=== PATIENT | female | born 1990 | race Caucasian/White ===

== ENCOUNTER → 2020-06-07 | Outpatient (CLI) | payer SELFPAY ==
[2020-06-07 09:22] VITALS: BMI 29.7
[2020-06-12 04:26] LABS: HPV Reflexed? NOT INDICATED
== END | disposition home or self-care (01) ==
LOC: LABSPEC 13:16
PROVIDERS: Referring Provider Obstetrics & Gynecology; Visit Provider Obstetrics & Gynecology
DX: O09.90 Supervision of high risk pregnancy, unspecified, unspecified trimester (principal); Z3A.00 Weeks of gestation of pregnancy not specified
CPT/HCPCS: 87086; 87088; 88175; G0145

== ENCOUNTER → 2020-07-01 11:25 | Outpatient (CLI) | payer SELFPAY ==
[2020-07-01 10:46] VITALS: BMI 30.6
[2020-07-01 11:46] LABS: Absolute Lymphocyte Count 2.18 X10^3/uL (0.83-4.51); Absolute Neutrophil Count 5.7 X10^3/uL (2.0-7.7); Basophil# 0.03 X10^3/uL; Basophil% 0.3 % (0-1); Eosinophil# 0.24 X10^3/uL; Eosinophils% 2.7 % (0-5); Hematocrit 36.7 % (37-47); Hemoglobin 12.3 g/dL (12.0-15.0); Lymphocyte # 2.18 X10^3/ul (4.0); Lymphocyte % 24.9 % (19-41); Mean Corp Hgb Conc 33.5 g/dL (32-36); Mean Corpuscular Hgb 30.6 pg (27.0-32.0); Mean Corpuscular Volume 91.3 fL (81-99); Mean Platelet Vol. 9.2 fl (6.2-12.0); Monocyte# 0.52 X10^3/uL; Monocyte% 5.9 % (0-10); NRBC Flagged by Analyzer 0 % (0-5); Neutrophil # 5.74 X10^3/uL (2.7-7.7); Neutrophil % 65.7 % (47-70); Platelet Count 188 K/mm3 (150-450); RBC Distribution Width CV 13.2 % (11.6-14.6); RBC Distribution Width SD 43.9 fl (35.1-43.9); Red Blood Count 4.02 M/mm3 (4.2-5.4); White Blood Count 8.8 K/mm3 (4.4-11.0)
== END ==
PROVIDERS: Obstetrics & Gynecology; Referring Provider Obstetrics & Gynecology; Visit Provider Obstetrics & Gynecology
DX: O09.90 Supervision of high risk pregnancy, unspecified, unspecified trimester (principal); Z3A.00 Weeks of gestation of pregnancy not specified
CPT/HCPCS: 36415; 85025; 86850; 86900; 86901

== ENCOUNTER → 2020-08-13 13:46 | Outpatient (CLI) | payer OTHER, SELFPAY ==
[2020-08-05 11:06] VITALS: BMI 31.4
--- NOTE | 2020-08-13 13:48 | US_ITS ---
STUDY: SECOND AND THIRD TRIMESTER OBSTETRICAL ULTRASOUND REASON FOR EXAM: Female, 29 years old ANATOMY LMP: 04/13/2020. TECHNIQUE: Transabdominal TECHNICAL QUALITY: Adequate. PRIOR ULTRASOUND: None. FINDINGS: There is a single intrauterine fetus. The fetus is in a cephalic presentation. There is demonstrated cardiac activity with a heart rate of 150 bpm. There is a normal amniotic fluid volume. The largest amniotic fluid pocket measures 3.2 cm x 4.4 cm. The amniotic fluid index (JESENIA) is within normal limits. The placenta is anterior and fundal. There are Grade 0 placental changes. The cervix measures 4.8 cm in length. The adnexal regions are not visualized. BIOMETRY: BPD: 4.72 cm: 20 weeks, 1 days HC: 17.67 cm: 20 weeks, 1 days AC: 15.26 cm: 20 weeks, 3 days FL: 3.27 cm: 20 weeks, 1 days CI: 78.2% FL/BPD: 69.2% FL/HC: FL/AC: 21.4% HC/AC: 1.16 age by current US: 20 weeks, 0 days. ALETA by current US: 12/31/2020. Estimated weight: 346 grams, +/- 51 grams, 89.2 %. Age by LMP: 19 weeks, 3 days. ALETA by LMP: 01/04/2021. ANATOMY: Gender: Female Cranium: Normal lateral ventricles. Normal choroid plexus. Normal cerebellum. Normal cisterna magna. Normal face, nose and lips. Chest: Normal 4-chamber heart. Abdomen/Pelvis: Normal diaphragm. Normal stomach. Normal abdominal wall. Normal cord insertion. Normal 3 vessel cord. Normal kidneys. Normal bladder. Spine: Normal cervical spine. Normal thoracic spine. Normal lumbar spine. Normal sacrum. Extremities: Normal bilateral upper extremities. Normal bilateral lower extremities. US/OB Anatomy Scan IMPRESSION: Single live intrauterine gestation with a mean gestational age of 20 weeks. Electronically Signed: Jamey Chance, at 9:25 EST , Service support ,
== END ==
PROVIDERS: PCP Family Medicine; Referring Provider Obstetrics & Gynecology; Visit Provider Obstetrics & Gynecology
DX: Z36.9 Encounter for antenatal screening, unspecified (principal)
CPT/HCPCS: 76805

== ENCOUNTER → 2020-10-23 09:59 | Outpatient (CLI) | payer OTHER, SELFPAY ==
[2020-09-19 10:36] VITALS: BMI 32.7
[2020-10-23 10:47] LABS: Absolute Neutrophil Count 6.1 X10^3/uL (2.0-7.7); Basophil# 0.03 X10^3/uL; Basophil% 0.4 % (0-1); Eosinophil# 0.09 X10^3/uL; Eosinophils% 1.1 % (0-5); Hematocrit 31.9 % (37-47); Hemoglobin 10.3 g/dL (12.0-15.0); Lymphocyte % 17.8 % (19-41); Mean Corp Hgb Conc 32.3 g/dL (32-36); Mean Corpuscular Hgb 30.2 pg (27.0-32.0); Mean Corpuscular Volume 93.5 fL (81-99); Mean Platelet Vol. 10.3 fl (6.2-12.0); Monocyte# 0.62 X10^3/uL; Monocyte% 7.4 % (0-10); NRBC Flagged by Analyzer 0 % (0-5); Neutrophil # 6.11 X10^3/uL (2.7-7.7); Neutrophil % 72.5 % (47-70); Platelet Count 166 K/mm3 (150-450); RBC Distribution Width CV 13.2 % (11.6-14.6); RBC Distribution Width SD 45.1 fl (35.1-43.9); Red Blood Count 3.41 M/mm3 (4.2-5.4); White Blood Count 8.4 K/mm3 (4.4-11.0)
[2020-10-23 11:10] LABS: Glucose Challenge Gest 1H 50g 83 mg/dL (70-140)
== END ==
PROVIDERS: PCP Family Medicine; Referring Provider Obstetrics & Gynecology; Visit Provider Obstetrics & Gynecology
DX: O09.90 Supervision of high risk pregnancy, unspecified, unspecified trimester (principal); Z3A.00 Weeks of gestation of pregnancy not specified; Z13.1 Encounter for screening for diabetes mellitus
CPT/HCPCS: 36415; 82950; 85025

== ENCOUNTER → 2020-10-28 | Outpatient (CLI) | payer OTHER, SELFPAY ==
[2020-10-28 11:51] VITALS: BMI 34.2
[2020-10-28 12:30] LABS: ROM Internal Control Test YES-OK TO RESULT pt. (Internal QC); ROM Patient Test Negative (Negative)
== END | disposition home or self-care (01) ==
LOC: LABSPEC 12:05
PROVIDERS: PCP Family Medicine; Visit Provider Nurse Practitioner Women's Health
DX: O09.90 Supervision of high risk pregnancy, unspecified, unspecified trimester (principal); O42.90 Premature rupture of membranes, unspecified as to length of time between rupture and onset of labor, unspecified weeks of gestation; Z3A.00 Weeks of gestation of pregnancy not specified
CPT/HCPCS: 84112

== ENCOUNTER → 2020-12-04 | Outpatient (CLI) | payer OTHER, SELFPAY ==
[2020-12-04 10:20] VITALS: BMI 35.6
== END | disposition home or self-care (01) ==
LOC: LABSPEC 12:23
PROVIDERS: PCP Family Medicine; Referring Provider Nurse Practitioner Women's Health; Visit Provider Nurse Practitioner Women's Health
DX: Z34.93 Encounter for supervision of normal pregnancy, unspecified, third trimester (principal); Z3A.36 36 weeks gestation of pregnancy
CPT/HCPCS: 87081

== ENCOUNTER 2020-12-27 16:15 | Inpatient (IN) | payer SELFPAY, OTHER ==
[2020-07-01 10:46] VITALS: BMI 30.6
[2020-12-27] VITALS (23 sets, daily range): BP systolic 111–133; BP diastolic 72–85; PULSE 63–84; TEMP 36.3–37; O2SAT 97–100; BMI 35.6; BMI 35.5
[2020-12-27] MEDS: Lactated Ringers 1,000 ML 50 ML IV ×2 (17:00→21:14)
--- NOTE | 2020-12-27 17:30 | PCM.HP.OB ---
HPI - General General Date of Admission: 12/27/20 HPI Narrative PEDRITO SOLORZANO, is a 30 F who presents IAL 3 cm dilated and ruptured clear fluid. [facility] Medical History (Updated 12/27/20 @ 17:[address] Rona Stone MD) No significant medical problems Pre-eclampsia Home Medications multivitamin no.47-iron fum 27 mg-folate no.1 1 mg-dha 300 mg capsule 1 cap PO DAILY 06/03/20 [History Last Taken 12/27/20 10:00 1 capsule] calcium mg PO DAILY 12/27/20 [History Last Taken 12/27/20 10:00] iron,iron asp gly-FA-mv,min38 125 tab PO DAILY 12/27/20 [History Last Taken 12/27/20 10:00 125 mg] magnesium 12/27/20 [History Last Taken 12/27/20 10:00] Allergy/AdvReac Type Severity Reaction Status Date / Time Penicillins Allergy Intermediate Unknown Verified 12/27/20 16:30 loratadine [From Claritin] AdvReac Severe Other Verified 12/27/20 16:30 Family History Mother Hypertension Surgical History H/O section Social History household members: family number of children: 2 current occupation: homemaker Smoking Status: Never smoker second hand exposure: No alcohol intake: never substance use type: does not use seatbelt use: always do you feel safe at home: Yes additional social history: - [place] History 4 Elective abortions Hx Para 2 Spontaneous abortions 1 Hx # Term Pregnancies Ectopic pregnancies Hx # Pregnancies Multiple births # of living children 2 NST FHR Rate Baby A Baseline: 140 Variability:: Moderate Accelerations:: None Decelerations:: None NST Reactive:: Appropriate for gestational age and Non-Reactive Uterine Activity:: irregular ROS Review of Systems ROS Unobtainable: due to mental status and other Constitutional Constitutional: Reports systems reviewed and no addt'l complaints, except as documented; Denies as per HPI, change in weight, fatigue, fever(s), malaise, weakness or other Eyes Eyes: Reports systems reviewed and no addt'l complaints, except as documented; Denies as per HPI, change in vision or other ENT HEENT: Reports as per HPI; Denies dizziness, dry mouth, headache(s), loss taste/smell, nasal congestion, nasal discharge, neck pain, sore throat or other Respiratory/Chest Respiratory/Chest: Reports systems reviewed and no addt'l complaints, except as documented Gastrointestinal Gastrointestinal: Reports systems reviewed and no addt'l complaints, except as documented; Denies abdominal pain, nausea or vomiting Musculoskeletal Musculoskeletal: Reports systems reviewed and no addt'l complaints, except as documented; Denies back pain or joint pain Integumentary Integumentary: Reports systems reviewed and no addt'l complaints, except as documented Neurologic Neurologic: Reports systems reviewed and no addt'l complaints, except as documented Psychiatric Psychiatric: Reports systems reviewed and no addt'l complaints, except as documented Endocrine Endocrinology: Reports systems reviewed and no addt'l complaints, except as documented Hematologic/Lymphatic Hematologic/Lymphatic: Reports systems reviewed and no addt'l complaints, except as documented Vital Signs Vital Signs Vital Signs: 12/27/20 17:21 12/27/20 17:22 12/27/20 17:23 Temperature 97.9 F Temperature Source Temporal Pulse Rate 78 76 Blood Pressure 120/72 BP Systolic 120 BP Diastolic 72 Pulse Ox 98 12/27/20 17:28 Temperature Temperature Source Pulse Rate 75 Blood Pressure BP Systolic BP Diastolic Pulse Ox 97 Physical Exam Const alert, oriented x3 and no apparent distress HEENT normocephalic Head and Scalp: atraumatic Eyes EOMs intact bilaterally and conjunctivae normal Neck full ROM, no lymphadenopathy, supple and thyroid normal General: trachea midline Lymph Lymphatic: no lymphadenopathy noted Chest inspection of chest normal, palpation of chest normal, inspection of breasts normal and palpation of breasts normal Breast/Axilla Inspection: normal inspection of the axillae Breast/Axilla Palpation: normal palpation of the axillae and no axillary lymphadenopathy Resp normal respiratory effort, no retractions, no use of accessory muscles and clear to auscultation bilaterally Cardio regular rate and regular rhythm GI normal to inspection, nondistended, normoactive bowel sounds, soft to palpation, non-tender, non-distended and no masses external exam normal, appearance of the vagina normal, appearance of the cervix normal, bimanual exam normal, adnexae non-tender and no adnexal masses Manual OB Exam: dilated 3, effaced 70 and station -3 Back/Spine no CVA tenderness Extremity normal to inspection Skin no rashes or lesions noted Neuro moves all extremities and deep tendon reflexes 2+ bilaterally Motor Exam: clonus absent and clonus present Psych mental status grossly normal Assessment & Plan Assessment/Plan (1) H/O pre-eclampsia in prior , currently : Status: Acute Code(s): O09.299 - Supervision of with other poor reproductive or obstetric history, unspecified trimester (2) : Status: Acute Code(s): Z34.90 - Encounter for supervision of normal , unspecified, unspecified trimester Qualifiers: Weeks of gestation: 40 weeks Qualified Code(s): Z3A.40 - 40 weeks gestation of (3) Supervision of high risk , antepartum: Status: Acute Code(s): O09.90 - Supervision of high risk , unspecified, unspecified trimester (4) Hx successful (vaginal after ), currently : Status: Acute Code(s): O34.219 - Maternal care for unspecified type scar from previous delivery (5) Influenza vaccination declined: Status: Acute Code(s): Z28.21 - Immunization not carried out because of patient refusal (6) 36 weeks gestation of : Status: Acute Code(s): Z3A.36 - 36 weeks gestation of (7) Anemia affecting : Status: Acute Code(s): O99.019 - Anemia complicating , unspecified trimester Qualifiers: Trimester: third trimester Qualified Code(s): O99.013 - Anemia complicating , third trimester (8) H/O section: Status: Acute Code(s): Z98.891 - History of uterine scar from previous surgery (9) Active labor at term: Status: Acute Plan: Patient presents IAL, plan expectant management for , pitocin PRN if needed. Pain management: . open to epidural GBS .negative Management of any complications: none I have reviewed the [facility] and made any clinically relevant updates.
--- NOTE | 2020-12-27 17:35 | PCM.DC ---
Discharge Instructions Outpatient Procedure Reason For Visit: LABOR AND DELIVERY Follow Up Care Test Results: Test results from this visit will be discussed in further detail at your follow-up appointment, if applicable. Discharge Plan Admission Admit Date/Time: 12/27/20 16:15 Attending Provider: Rona Stone Primary Care Provider: Cirilo Rehman Instructions Patient Instructions: After a Vaginal Discharge Orders/Prescriptions Prescriptions: No Action PNV-DHA 27 mg iron-1 mg -300 mg capsule 1 cap PO DAILY RF: 0 iron,iron asp gly-FA-mv,min38 125 mg iron-25 mg iron-1 mg Tablet 125 tab PO DAILY RF: 0 magnesium RF: 0 calcium 100 mg Capsule PO DAILY RF: 0 Referrals: Cirilo Rehman MD [Primary Care Provider] -
[2020-12-27 17:58] LABS: Absolute Lymphocyte Count 1.48 X10^3/uL (0.83-4.51); Absolute Neutrophil Count 5.9 X10^3/uL (2.0-7.7); Basophil# 0.02 X10^3/uL; Basophil% 0.2 % (0-1); Eosinophil# 0.08 X10^3/uL; Hemoglobin 11.1 g/dL (12.0-15.0); Lymphocyte # 1.48 X10^3/ul (0.83-4.51); Mean Corp Hgb Conc 33.6 g/dL (32-36); Mean Corpuscular Hgb 31.2 pg (27.0-32.0); Mean Corpuscular Volume 92.7 fL (81-99); Mean Platelet Vol. 10.9 fl (6.2-12.0); Monocyte# 0.76 X10^3/uL; Monocyte% 9.2 % (0-10); NRBC Flagged by Analyzer 0 % (0-5); Neutrophil # 5.85 X10^3/uL (2.7-7.7); Neutrophil % 71.1 % (47-70); Platelet Count 156 K/mm3 (150-450); RBC Distribution Width SD 50.5 fl (35.1-43.9); Red Blood Count 3.56 M/mm3 (4.2-5.4); White Blood Count 8.2 K/mm3 (4.4-11.0)
[2020-12-27 18:25] LABS: Bacteria 0 SEEN /hpf (None Seen); Mucous, Urine 0 SEEN /hpf (<or=2+); White Blood Cells 0 SEEN /hpf (0-5)
[2020-12-27 18:32] LABS: Color, Urine Yellow (Yellow); Glucose, Dipstick Normal (Normal); Ketone-Dipstick Negative (Negative); Leukocyte Esterase-Dipstick Negative /ul (Negative); Nitrite-Dipstick Negative (Negative); Occult Blood-Urine 150 /ul (Negative); Protein-Dipstick Negative (Negative); Urine Bilirubin Dipstick Negative (Negative); Urine Clarity Clear (Clear); Urine Urobilinogen Normal (Normal)
[2020-12-27 18:42] LABS: ALB/GLOB Ratio 0.7 RATIO (0.9-2.4); AST(SGOT) 22 U/L (15-37); Alanine Aminotransfer ALT/SGPT 17 U/L (13-56); Albumin, Serum 2.7 g/dL (3.2-5.0); Alkaline Phosphatase 156 U/L (45-117); Anion Gap 8 (5-15); BUN 10 mg/dL (7-18); BUN/Creat Ratio 18.5 RATIO (10-20); Calcium,Total 9.5 mg/dL (8.5-10.1); Chloride 106 mmol/L (98-107); Creatinine, Serum 0.54 mg/dL (0.55-1.02); EST Glomerular Filtration Rate 142 mL/min (>60); Est Glom Filt Rate - Afr Amer 171 mL/min (>60); Globulin 4.1 g/dL (2.2-4.2); Glucose 69 mg/dL (74-106); Potassium 3.9 mmol/L (3.5-5.1); Protein, Total 6.8 g/dL (6.4-8.2); Red Blood Cells-Urine 5-10 SEEN /hpf (0-5); Sodium Level 137 mmol/L (136-145); Squamous Epithelial Cells - UA 0-5 SEEN /hpf (5-10)
[2020-12-27 18:48] LABS: Amphetamine Urine VISTA NEGATIVE (<1000 ng/mL); Barbiturate Urine VISTA NEGATIVE (< 200 ng/mL); Benzodiazepine Urine VISTA NEGATIVE (< 200 ng/mL); Cocaine Urine VISTA NEGATIVE (< 300 ng/mL); Ecstacy Urine VISTA NEGATIVE (< 500 ng/mL); Methadone Urine VISTA NEGATIVE (< 300 ng/mL); PCP Urine VISTA NEGATIVE (< 25 ng/mL); THC Urine VISTA NEGATIVE (< 50 ng/mL); Vista UDS pH Range 6
[2020-12-27 21:18] LABS: Chlamydia Trachomatis by PCR Negative (Negative); Neisserai gonorrhoeae by PCR Negative (Negative); Probe Check PASS; Sample Adequacy Control PASS; Specimen Processing Control PASS
[2020-12-27] MEDS: Oxytocin 30 units/NS 500 ml 30 UNITS/500 ML IV.SOLN IV (23:13)
[2020-12-28] VITALS (25 sets, daily range): BP systolic 104–147; BP diastolic 63–86; PULSE 71–106; RESP 14–18; TEMP 36.6–37.3; O2SAT 98–100
[2020-12-28] MEDS: fentaNYL 100 MCG/2 ML Ampul IV (04:28)
[2020-12-28] MEDS: Lactated Ringers 1,000 ML 200 ML IV (05:16)
[2020-12-28] MEDS: Lactated Ringers 500 ML 999 ML IV (05:17)
[2020-12-28] MEDS: Oxytocin 30 units/NS 500 ml 30 UNITS/500 ML IV.SOLN 334 UNITS IV (05:51)
--- NOTE | 2020-12-28 06:00 | EX.PCM.OBRPT ---
Report of Operation (OB) Information ALETA Calculator Estimated Delivery Date Method Current WG Current Estimate 12/27/20 Ultrasound #1 40w 1d Other Estimates 01/04/21 LMP (Certain) 39w 0d Induction Maternal Presentation: Active Labor Findings Description of Procedure: Patient began pushing and delivered the head in the HARMEET presentation. The head was delivered atraumatically and a tight nuchal x1 was noted after the anterior shoulder was delivered the infant was unable to be delivered through it and therefore the it was clamped and cut on the perineum. The anterior and posterior shoulders delivered without complication followed by the rest of the infant and the was placed on the maternal abdomen. Delayed cord clamping was employed for approximately 60 seconds. Cord was clamped and cut and gentle traction was applied to the cord and the placenta delivered spontaneously immediately following it was noted to be intact with three-vessel cord. The perineum and vagina were inspected and noted to have no laceration. EBL was 100 cc. Patient and tolerated delivery well. Surgery/ Procedure Performed: Presentation: Positive for HARMEET Amniotic Membrane Rupture Type: Spontaneous Amniotic Fluid Description: Clear Placental Delivery Description: Spontaneous Placenta Disposition: [facility] Cord Vessel Description: 3 Vessels Delayed Cord Clamping: Yes Fluids Replaced: crystalloid Medications Given Medications Given After Delivery: IV Pitocin Post Vaginal Delivery Episiotomy Description: None Laceration: None Complications Complications: None Baby B Information Amniotic Membrane Rupture Type: Spontaneous Operative Information Cord Vessel Description: 3 Vessels Procedures Urinary/Genital [id number]: [id number] delivery [facility]
--- NOTE | 2020-12-28 06:16 | DS.PCM_ITS ---
Providers Date of Admission: 12/27/20 Primary Care Physician: Dr. Cirilo Rehman MD Reason For Visit: VAG Diagnosis Discharge Diagnosis (1) H/O pre-eclampsia in prior , currently : Status: Resolved Code(s): O09.299 - Supervision of with other poor reproductive or obstetric history, unspecified trimester (2) : Status: Resolved Code(s): Z34.90 - Encounter for supervision of normal , unspecified, unspecified trimester Qualifiers: Weeks of gestation: 40 weeks Qualified Code(s): Z3A.40 - 40 weeks gestation of (3) Supervision of high risk , antepartum: Status: Resolved Code(s): O09.90 - Supervision of high risk , unspecified, unspecified trimester (4) Hx successful (vaginal after ), currently : Status: Resolved Code(s): O34.219 - Maternal care for unspecified type scar from previous delivery (5) Influenza vaccination declined: Status: Resolved Code(s): Z28.21 - Immunization not carried out because of patient refusal (6) 36 weeks gestation of : Status: Resolved Code(s): Z3A.36 - 36 weeks gestation of (7) Anemia affecting : Status: Resolved Code(s): O99.019 - Anemia complicating , unspecified trimester Qualifiers: Trimester: third trimester Qualified Code(s): O99.013 - Anemia complicating , third trimester (8) H/O section: Status: Resolved Code(s): Z98.891 - History of uterine scar from previous surgery (9) Active labor at term: Status: Resolved Medications at Discharge Home Medications multivitamin no.47-iron fum 27 mg-folate no.1 1 mg-dha 300 mg capsule 1 cap PO DAILY 06/03/20 calcium mg PO DAILY 12/27/20 iron,iron asp gly-FA-mv,min38 125 tab PO DAILY 12/27/20 magnesium 12/27/20 Hospital Course Operations None Procedures None Summary of Care Provided Hospital Course: patient presented IAL and proceeded to deliver uncomplicated. She a routine recovery post delivery and was stable for discharge to home on PPD 1 ABG / Lab / Microbiology Data Result Diagrams: 12/27/20 17:00 12/27/20 17:00 Laboratory: Laboratory Results - last 24 hr 12/27/20 12/27/20 12/27/20 17:00 17:00 17:00 WBC 8.2 RBC 3.56 L Hgb 11.1 L Hct 33.0 L MCV 92.7 MCH 31.2 MCHC 33.6 RDW Std Deviation 50.5 H RDW Coeff of Jamaal 15.0 H Plt Count 156 MPV 10.9 Immature Gran % (Auto) 0.500 Neut % (Auto) 71.1 H Lymph % (Auto) 18.0 L [place] % (Auto) 9.2 Eos % (Auto) 1.0 Baso % (Auto) 0.2 Absolute Neuts (auto) 5.9 Absolute Lymphs (auto) 1.48 Nucleated RBC % 0 Sodium Potassium Chloride Carbon Dioxide Anion Gap BUN Creatinine Estim Creat Clear Calc Est GFR (MDRD) Af Amer Est GFR (MDRD) Non-Af BUN/Creatinine Ratio Glucose Calcium Total Bilirubin AST ALT Alkaline Phosphatase Total Protein Albumin Globulin Albumin/Globulin Ratio Urine Color Urine Clarity Urine pH Ur Specific [place] Urine Protein Urine Glucose (UA) Urine Ketones Urine Occult Blood Urine Nitrite Urine Bilirubin Urine Urobilinogen Ur Leukocyte Esterase Urine RBC Urine WBC Ur Squamous Epith Cells Urine Bacteria Urine Mucus Urine Opiates Screen NEGATIVE Urine Methadone Screen NEGATIVE Ur Barbiturates Screen NEGATIVE Ur Phencyclidine Scrn NEGATIVE Ur Amphetamines Screen NEGATIVE U Methamphetamin-MDMA NEGATIVE U Benzodiazepines Scrn NEGATIVE Urine Cocaine Screen NEGATIVE U Cannabinoids Screen NEGATIVE Ur Drug Screen Comment Chlam trachomat DNA PCR N.gonorrhoeae DNA (PCR) Blood Type O POSITIVE Antibody Screen NEGATIVE 12/27/20 12/27/20 12/27/20 17:00 17:00 17:00 WBC RBC Hgb Hct MCV MCH MCHC RDW Std Deviation RDW Coeff of [place] Plt Count MPV Immature Gran % (Auto) Neut % (Auto) Lymph % (Auto) [place] % (Auto) Eos % (Auto) Baso % (Auto) Absolute Neuts (auto) Absolute Lymphs (auto) Nucleated RBC % Sodium 137 Potassium 3.9 Chloride 106 Carbon Dioxide 23.0 Anion Gap 8 BUN 10 Creatinine 0.54 L Estim Creat Clear Calc 116.00 Est GFR (MDRD) Af Amer 171 Est GFR (MDRD) Non-Af 142 BUN/Creatinine Ratio 18.5 Glucose 69 L Calcium 9.5 Total Bilirubin 0.20 AST 22 ALT 17 Alkaline Phosphatase 156 H Total Protein 6.8 Albumin 2.7 L Globulin 4.1 Albumin/Globulin Ratio 0.7 L Urine Color Yellow Urine Clarity Clear Urine pH 7.0 Ur Specific [place] 1.010 Urine Protein Negative Urine Glucose (UA) Normal Urine Ketones Negative Urine Occult Blood 150 H Urine Nitrite Negative Urine Bilirubin Negative Urine Urobilinogen Normal Ur Leukocyte Esterase Negative Urine RBC 5-10 SEEN Urine WBC 0 SEEN Ur Squamous Epith Cells 0-5 SEEN Urine Bacteria 0 SEEN Urine Mucus 0 SEEN Urine Opiates Screen Urine Methadone Screen Ur Barbiturates Screen Ur Phencyclidine Scrn Ur Amphetamines Screen U Methamphetamin-MDMA U Benzodiazepines Scrn Urine Cocaine Screen U Cannabinoids Screen Ur Drug Screen Comment Chlam trachomat DNA PCR Negative N.gonorrhoeae DNA (PCR) Negative Blood Type Antibody Screen Meaningful Use Info Meaningful Use Diagnoses (Choose all that apply): None applicable Discharge Plan Admission Admit Date/Time: 12/27/20 16:15 Primary Reason for Your Visit: labor and vaginal delivery Attending Provider: Rona Stone Primary Care Provider: Cirilo Rehman Instructions Patient Instructions: After a Vaginal Discharge Orders/Prescriptions Prescriptions: No Action PNV-DHA 27 mg iron-1 mg -300 mg capsule 1 cap PO DAILY RF: 0 iron,iron asp gly-FA-mv,min38 125 mg iron-25 mg iron-1 mg Tablet 125 tab PO DAILY RF: 0 magnesium RF: 0 calcium 100 mg Capsule PO DAILY RF: 0 Referrals: Cirilo Rehman MD [Primary Care Provider] -
[2020-12-28] MEDS: Acetaminophen 500 MG Tablet 1000 MG PO (07:02)
[2020-12-28 12:00] LABS: HIV - WCH Non-Reactive (Nonreactive); Hepatitis B Surface Antigen Non-Reactive (Nonreactive); Hepatitis C Antibody Non-Reactive (Nonreactive)
[2020-12-29 04:22] VITALS: TEMP 36.4
[2020-12-29 04:23] VITALS: BP 110/61; PULSE 76
[2020-12-29 04:26] VITALS: BP 110/61; PULSE 76; RESP 16; TEMP 36.3
--- NOTE | 2020-12-29 07:39 | PCM.PN.OB ---
Subjective Subjective: Patient doing well without complaints. Tolerating PO. Ambulating and voiding without difficulty. feeding well. Denies chest pain, shortness of breath, calf pain/swelling, fevers, chills, lightheadedness. Objective Data Objective Data Vital Signs: Vital Signs Temp Pulse Resp BP Pulse Ox 97.3 F L 76 16 110/61 98 12/29/20 04:26 12/29/20 04:26 12/29/20 04:12/29/20 04:12/28/20 05:38 Oxygen Delivery Method Room Air Weight: 188 lb 3.2 oz Body Mass Index (BMI) 35.5 Intake & Output: Intake and Output for Last 24 Hours 12/27/20 12/28/20 12/29/20 23:59 23:59 23:59 Intake Total 831 / 831 2144.09 / 2144.09 Output Total 2625 / 2625 Balance 831 / 831 -480.91 / -480.91 Lab / Micro Data Result Diagrams: 12/27/20 17:00 12/27/20 17:00 Labs: Laboratory Results - last 24 hr 12/27/20 17:00 Hep Bs Antigen Non-Reactive Hepatitis C Antibody Non-Reactive HIV 1&2 Antibody Non-Reactive
--- NOTE | 2020-12-29 07:42 | PCM.PN.OB ---
Subjective Subjective: Patient doing well without complaints. Tolerating PO. Ambulating and voiding without difficulty. feeding well. Denies chest pain, shortness of breath, calf pain/swelling, fevers, chills, lightheadedness. Objective Data Objective Data Vital Signs: Vital Signs Temp Pulse Resp BP Pulse Ox 97.3 F L 76 16 110/61 98 12/29/20 04:26 12/29/20 04:26 12/29/20 04:26 12/29/20 04:12/28/20 05:38 Oxygen Delivery Method Room Air Weight: 188 lb 3.2 oz Body Mass Index (BMI) 35.5 Intake & Output: Intake and Output for Last 24 Hours 12/27/20 12/28/20 12/29/20 23:59 23:59 23:59 Intake Total 831 / 831 2144.09 / 2144.09 Output Total 2625 / 2625 Balance 831 / 831 -480.91 / -480.91 Lab / Micro Data Result Diagrams: 12/27/20 17:00 12/27/20 17:00 Labs: Laboratory Results - last 24 hr 12/27/20 17:00 Hep Bs Antigen Non-Reactive Hepatitis C Antibody Non-Reactive HIV 1&2 Antibody Non-Reactive Physical Exam Const alert, oriented x3 and no apparent distress HEENT normocephalic Head and Scalp: atraumatic Resp normal respiratory effort GI soft to palpation and non-tender GI Narrative: fundus firm below umbilicus Uterus Palpation: other OB Assessment & Plan Assessment/Plan (1) Vaginal after : Status: Acute Code(s): O34.219 - Maternal care for unspecified type scar from previous delivery Plan: s/p PPD # 1 1. routine post delivery care 2. breast feeding- support given 3. rh positive 4. rubella unknown
[2020-12-29 09:00] VITALS: BP 116/70; PULSE 71; RESP 18; TEMP 36.7; O2SAT 96
[2020-12-29 09:15] VITALS: BP 116/70; PULSE 70; TEMP 36.7; O2SAT 96
[2020-12-30 09:46] LABS: Rubella IgG Reactive (Nonreactive); Syphilis Antibodies Non-reactive
== END 2020-12-29 12:05 | disposition home or self-care (01) | DRG 807 ==
PROVIDERS: Obstetrics & Gynecology; Admitting Provider Obstetrics & Gynecology; PCP Family Medicine; Visit Provider Obstetrics & Gynecology
DX: O34.219 Maternal care for unspecified type scar from previous cesarean delivery (principal); Z37.0 Single live birth; O69.1XX0 Labor and delivery complicated by cord around neck, with compression, not applicable or unspecified; O99.02 Anemia complicating childbirth; D64.9 Anemia, unspecified; Z3A.40 40 weeks gestation of pregnancy; Z28.21 Immunization not carried out because of patient refusal; Z87.59 Personal history of other complications of pregnancy, childbirth and the puerperium
CPT/HCPCS: 59025; 59050; 80053; 80307; 81001; 85025; 86703; 86762; 86780; 86803; 86850; 86900; 86901; 87340; 87491; 87591; 99218; J7120; G0378

== ENCOUNTER → 2022-02-26 | Outpatient (CLI) | payer SELFPAY ==
[2022-02-26 13:35] LABS: T4 Free Direct 1.04 ng/dL (0.76-1.46); Thyroid Stim Hormone (TSH) 1.17 uIU/mL (0.358-3.74)
[2022-02-27 21:07] LABS: Thyroid Peroxidase AB < 8 IU/mL (0-34)
[2022-02-28 15:35] LABS: Thyroglobulin Antibody < 1.0 IU/mL (0.0-0.9)
== END | disposition home or self-care (01) ==
PROVIDERS: PCP Family Medicine; Referring Provider Obstetrics & Gynecology; Visit Provider Obstetrics & Gynecology
DX: R35.0 Frequency of micturition (principal); Z13.29 Encounter for screening for other suspected endocrine disorder
CPT/HCPCS: 36415; 84439; 84443; 86376; 86800; 87086; 87088

== ENCOUNTER → 2022-03-23 | Outpatient (CLI) | payer SELFPAY ==
--- NOTE | 2022-03-23 11:44 | US_ITS ---
STUDY: THYROID ULTRASOUND REASON FOR EXAM: Female, 31 years old. Thyromegaly TECHNIQUE: Ultrasound evaluation of the thyroid was performed with real-time and static brooks-scale imaging. COMPARISON: None. FINDINGS: RIGHT LOBE: The right lobe of the thyroid gland measures 4.4 cm x 1.6 cm x 1.2 cm. There is a homogeneous echotexture. There are no demonstrated solid, cystic or complex lesions. LEFT LOBE: The left lobe of the thyroid gland measures 4.2 cm x 1.7 cm x 1 cm. There is a homogeneous echotexture. There are no demonstrated solid, cystic or complex lesions. ISTHMUS: The isthmus measures 1 mm. The regional lymph nodes are normal. US/Thyroid IMPRESSION: Normal ultrasound examination of the thyroid. Electronically Signed: Jamey Chance MD at 12:38 EDT ,
== END | disposition home or self-care (01) ==
PROVIDERS: PCP Family Medicine; Referring Provider Obstetrics & Gynecology; Visit Provider Obstetrics & Gynecology
DX: E01.0 Iodine-deficiency related diffuse (endemic) goiter (principal)
CPT/HCPCS: 76536

== ENCOUNTER → 2022-04-13 | Outpatient (CLI) | payer SELFPAY ==
--- NOTE | 2022-04-13 06:59 | MRI_ITS ---
STUDY: MR PELVIS WITH T WITHOUT CONTRAST REASON FOR EXAM: Female, 31 years old. URETHRAL DIVERTICULI TECHNIQUE: Standardized fat and water weighted pulse sequences were obtained in all 3 orthogonal planes, pre-and post contrast administration. IV 13 cc clariscan was administered for the contrast portion of the examination. COMPARISON: None. FINDINGS: Normal urinary bladder. Normal visualized small intestine. Normal visualized colon. There is no pelvic fluid. There is no pelvic mass lesion or lymphadenopathy. There is a 1 cm oval mass of fluid intensity without contrast enhancement between the urethra in the anterior wall of the vagina inferior to the pubic symphysis. Differential diagnosis includes a urethral diverticulum, [place] duct cyst, or Bartholin''s gland cyst. Normal visualized pelvic arteries. Normal osseous structures. Normal abdominal wall. MRI/Pelvis W/WO Contrast IMPRESSION: 1 cm cyst between the urethra in the anterior wall of the vagina. Differential diagnosis includes urethral diverticulum, [place] duct cyst, or Bartholin''s gland cyst. Electronically Signed: Chris Gaitan MD at 9:24 EDT ,
== END | disposition home or self-care (01) ==
PROVIDERS: PCP Family Medicine; Referring Provider Urology; Visit Provider Urology
DX: N36.1 Urethral diverticulum (principal)
CPT/HCPCS: 72197; A9575

== ENCOUNTER 2023-08-16 11:46 | Emergency (ER) | payer OTHER, SELFPAY ==
[2023-08-16 11:47] VITALS: BP 115/67; PULSE 60; RESP 14; TEMP 36.8; O2SAT 98; BMI 29.4
--- NOTE | 2023-08-16 12:00 | EDS_ITS ---
HPI History of Present Illness HPI Narrative: 32-year-old female approximately 6 weeks with no care as of yet for this . She plans to follow-up with Dr. Rona Stone. Patient is G5, P3 Ab1 with that being a miscarriage. She is complaining of some discomfort in her left calf. She has never had a DVT, PE or superficial thrombophlebitis that she is aware of. Denies any chest pain or shortness of breath. No hemoptysis. Chief Complaint: Lower Extremity Injury Informant: patient Occured/Mechanism Mechanism/Context: No injury and No blunt trauma Onset/Context/Timing Onset: Days Context: Gradual Onset Timing: Continuous Current Severity: Mild Maximum Severity: Mild Associated Symptoms Associated Symptoms: Negative for Parasthesia, Weakness or Loss of Funtion Narrative Narrative: 32-year-old female approximately 6 weeks . With left calf discomfort. No history of DVT or PE. Prior similar symptoms: No Recent Illness/Hospitalization: No PFSH PFSH Medical History no medical history no medical history Allergy/AdvReac Type Severity Reaction Status Date / Time No Known Allergies Allergy Verified 08/16/23 11:47 Family History no significant family his Surgical History no surgical history Social History Smoking Status: Never smoker ROS ROS ED ROS Narrative Denies any recent illness. No chest pain. No shortness of breath. Review of Systems ROS Unobtainable: Denies due to encephalopathy Constitutional Constitutional ED: Denies chills or fever(s) Eyes Eyes: Denies blurry vision ENT ENT ED: Denies ear pain Cardiovascular Cardiovascular: Denies palpitations or racing heartbeat Respiratory/Chest Respiratory/Chest: Denies cough or dyspnea Gastrointestinal Gastrointestinal: Denies abdominal pain Genitourinary Genitourinary ED: Denies dysuria or hematuria Musculoskeletal Musculoskeletal: Denies arthralgias Integumentary Denies abscess Neurologic Neurologic: Denies headache(s) Psychiatric Psychiatric: Denies anxiety Endocrine Endocrinology: Denies polydipsia or polyphagia Hematologic/Lymphatic Hematologic/Lymphatic: Denies easy bleeding, easy bruising or lymphadenopathy Allergic/Immunologic Allergic/Immunologic ED: Denies mouth swelling, tongue swelling or urticaria EXAM Physical Exam Narrative Exam Narrative: 32-year-old female no acute distress vital signs stable afebrile. Pulse ox 98% on room air no hypoxia. H EENT exam unremarkable. Neck nontender. Lungs clear to auscultation. Heart regular rhythm rate about 60 no murmur. Abdomen soft nondistended. Normal bowel sounds no peritoneal signs. Moving all 4 extremities. Calves are nontender without edema. Her left medial calf there appears to be an area that may be consistent with a superficial thrombophlebitis. There is no edema in the leg. Right calf is nontender. No swelling. Neurologically she is awake and alert. No focal motor deficits. Const Vital Signs: 08/16/23 11:47 Temperature 98.2 F Temperature Source Temporal Pulse Rate 60 Respiratory Rate 14 Blood Pressure 115/67 Blood Pressure Mean 83 Pulse Ox 98 Oxygen Delivery Method Room Air Positive well nourished and well developed; Negative for obese, cachectic, contractures or unkempt General Appearance ED: well developed and NAD; Negative for unkempt, cachectic or contractures Nutritional Appearance: Negative for cachectic or obese HEENT Reports moist mucous membranes normocephalic and atraumatic; Negative for trauma or tenderness Eyes PERRL General Eye ED: Negative for other Neck full ROM and supple Thyroid: Negative for tender Lymph Lymphatic: Negative for other Chest Wall inspection of chest normal and palpation of chest normal Chest: Negative for other Resp normal respiratory effort, no retractions and clear to auscultation bilaterally Effort and Inspection: Negative for pain with movement Auscultation: Negative for rales, rhonchi, wheezes or diminished lung sounds Percussion: Negative for other Cardio regular rate, regular rhythm, S1 normal heart sound, S2 normal heart sound and no murmurs Rate: Negative for bradycardia or tachycardic Rhythm: Negative for abnormal rhythm Bruits: Negative for other GI non-tender, non-distended and no masses Inspection: Negative for abdominal distention Auscultation: normoactive bowel sounds Palpation: soft; Negative for tender or guarding Bladder / Kidney Exam: No other Back/Spine no CVA tenderness General Back: Negative for CVA tenderness Cervical Spine: Negative for cervical spine tenderness Thoracic Spine / Upper Back: Negative for thoracic spinal tenderness Lumbar Spine / Lower Back: Negative for lumbar spinal tenderness Extremity normal to inspection and full ROM General Extremety ED: Negative for cyanosis, edema or weight-bearing difficulty General Extremity: Negative for cyanosis, edema or weight-bearing difficulty Neuro oriented x3, CN's II-XII intact bilaterally, moves all extremities and no sensory deficits noted Sensorium / Orientation: alert, oriented to person, oriented to place and oriented to time; Negative for orientation impaired, confused, lethargic or stuporous Motor Exam: strength 5/5 throughout Psych mental status grossly normal Appearance: Negative for unkempt Speech: No other Mood & Affect: Negative for anxious Skin no wounds Lesions: no lesions Rashes: no rashes Trauma: Negative for abrasion or laceration MDM MDM MDM Narrative Medical decision making narrative: 32-year-old female with left calf discomfort. She is currently 6 weeks . A noninvasive study of her left leg will be obtained. She has no other complaints at all think she needs any other lab work or other imaging. Repeat exam patient doing well at 1:14 PM. I did speak to Dr. Mj Hale on- call for Dr. Rona Stone prior to discharge. Patient be started on Motrin twice a day with warm compresses. To be stopped prior to the third trimester . History & Record Review Discussion w/independent historian: Patient and Family Additional record(s) reviewed:: No prior records Discharge Plan Triage Chief Complaint: Lower Extremity Injury ED Provider: Bandar Langston Dx/Rx/DC Orders Clinical Impression: First trimester , Superficial thrombophlebitis Instructions: ED Thrombophlebitis, Superficial Referrals: Rona Stone MD [Med Staff - Active Staff] - As soon as possible Activity Restrictions/Additional Instructions: Warm compresses to both lower legs. Motrin 2 pills (400 mg) twice a day for the next 2 weeks. You cannot use Motrin Advil ibuprofen in the third trimester of your . Follow-up with your OB for normal care. Disposition Disposition: Home, Self Care
--- NOTE | 2023-08-16 12:00 | VDLE_ITS ---
Reason For Study: Swelling LLE RIGHT LEFT CFV is compressible, spontaneous, phasic, GSV is normal. competent and demonstrates normal CFV is compressible, spontaneous, phasic, augmentation. competent, and demonstrates normal Procedure augmentation. This is a venous duplex using B-mode, color FV is compressible, spontaneous, phasic, flow and spectral Doppler. competent and demonstrates normal Exam performed portable in ED. augmentation. A preliminary report was called and/or faxed POP V is compressible, spontaneous, phasic, to Dr. Langston. competent and demonstrates normal augmentation. T/P Trunk is compressible. PTV is compressible. LT PerV is compressible. Lt calf Varicosity is dilated and NON COMPRESSIBLE consistent with acute SVT. VL/Venous Duplex US, Unilateral Interpretation Summary Acute superficial vein thrombosis is noted in the left calf varicosities. Deep veins of the left lower extremity are patent and compressible segmentally. There is no evidence of left lower extremity deep vein thrombosis. The left great saphenous vein joesph ears patent and compressible segmentally. Ordering Physician: Bandar Langston Performed By: Mima Monae, ZAHEER, RVT
== END 2023-08-16 13:35 | disposition home or self-care (01) ==
LOC: ED 13:34
PROVIDERS: Emergency Provider Emergency Medicine; Visit Provider Emergency Medicine
DX: O22.21 Superficial thrombophlebitis in pregnancy, first trimester (principal); I80.02 Phlebitis and thrombophlebitis of superficial vessels of left lower extremity; Z3A.01 Less than 8 weeks gestation of pregnancy
CPT/HCPCS: 93971; 99282

== ENCOUNTER → 2023-08-31 | Outpatient (CLI) | payer SELFPAY ==
--- NOTE | 2023-08-31 14:45 | VDLE_ITS ---
Reason For Study: Left leg pain Procedure LEFT This is a venous duplex using B-mode, color CFV is compressible, spontaneous, phasic, flow and spectral Doppler. competent, and demonstrates normal Exam performed in department. augmentation. A preliminary report was called and/or faxed FV is compressible, spontaneous, phasic, to Yany [facility]. competent and demonstrates normal augmentation. POP V is compressible, spontaneous, phasic, competent and demonstrates normal augmentation. T/P Trunk is compressible. PTV is compressible. LT PerV is compressible. Acute superficial vein thrombosis is noted in the left GSV from porx thigh-prox calf. It is NONCOMPRESSIBLE and dilated. It is approximately 8 cm from the CFV. Thrombus filled varicose viens are noted in the left proximal calf. VL/Venous Duplex US, Unilateral Interpretation Summary There is no evidence of left lower extremity deep vein thrombosis. Acute superf icial thrombophlebitis left great saphenous vein from the proximal thigh to the proxi mal calf. It extends to within 8 cm of the common femoral vein. Superficial thrombophlebitis varicosities on the left proximal calf Ordering Physician: Janet Manuel Referring Physician: Cirilo Rehman Performed By: Sadia Cervantes RVT
--- OUTSIDE RECORDS SUMMARY | 2023-08-31 17:16 | XMS RPT_ITS | CCD ---
Author Name Unknown Address [address] [place] [address] Organization [facility] Results Test Name Value Interpretation Reference Range Facil ity Summary Purpose Family History No Family History Records Found Advance Directives No Advanced Directives Records Found Additional Source Comments INFORMATION SOURCE (unrecogn ized section and content) FOR RECORDS PERTAINING TO PATIENTS WHO ARE OR HAVE BEEN ENROLLED IN A CHEMICAL DEPENDENCY/SUBSTANCEABUSE PROGRAM, SOME INFORMATION MAY BE OMITTED. This clinical summary was aggregated from multiple sources. Caution should be exercised in using it in the provision of clinical care. This summary normalizes information from multiple sources, and as a consequence, information in this document may materially change the coding, format and clinical context of patient data. In addition, data may be omitted in some cases. CLINICAL DECISIONS SHOULD BE BASED ON THE PRIMARY CLINICAL RECORDS. [employer]. provides no warranty or guarantee of the accuracy or completeness of information in this document.
== END | disposition home or self-care (01) ==
PROVIDERS: PCP Family Medicine; Referring Provider Advanced Practice Midwife; Visit Provider Advanced Practice Midwife
DX: M79.605 Pain in left leg (principal)
CPT/HCPCS: 93971

== ENCOUNTER → 2023-09-09 | Outpatient (CLI) | payer SELFPAY ==
--- OUTSIDE RECORDS SUMMARY | 2023-09-09 17:09 | XMS RPT_ITS | CCD ---
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 Name Role Phone SIVAKUMAR SCHMITT MD Unavailable TIARRA SCHMITT MD Unavailable ALESSIO PACHECO Unavailable [phone] Christin ALBERTS MD Unavailable Leelee Dewey RN Unavailable Unavailable BRANDI PORTILLO Unavailable Unavailable Unavailable Unavailable Allergies Allergy Classification Reported Allergen(s) Allergy Type Date of Onset Reaction(s) Facility (1 source) Amoxicillin Drug Allergy 09-12-2019 [facility] Medications Completed/Discontinued Medications Medication Drug Class(es) Dates Sig (Normalized) Sig (Original) azithromycin 250 mg oral tablet (1 source) Macrolide Antimicrobial Start: 03-22-2019 End: 03-27-2019 Azithromycin 250 MG Oral Tablet ; 2 (two) Tablets on day one then 1 daily for 4 days for 5 days Quantity: 6 {Tablet} Refills: 0 Ordered: 12-Sep-2019 GO GUERRERO Start: 22-Mar-2019 End: 27-Mar-2019 Status: Inactive Comments: medication to be dispensed in office Problems Active Problems Problem Classification Problem Date Documented Da te Episodic/Chronic Administrative/social admission (2 sources) Patient encounter status; Translations: [Counseling, unspecified] 03-22-2019 Episodic Influenza (2 sources) Influenza-like illness; Translations: [Influenza due to unidentified influenza virus with other respiratory manifestations] 09-12-2019 Episodic Otitis media and related conditions (2 sources) Otitis media of left ear; Translations: [Otitis media, unspecified, left ear] 03-22-2019 Episodic Residual codes; unclassified (2 sources) Overweight; Translations: [Other specified conditions influencing health status] 03-22-2019 Episodic Skin and subcutaneous tissue infections (2 sources) Impetigo; Translations: [Impetigo, unspecified] 03-22-2019 Episodic Past or Other Problems Problem Classification Problem Date Documented Da te Episodic/Chronic Unclassified (1 source) Cough - The onset of the cough has been acute and has been occurring in a persistent pattern for 6 days. The course has been constant. The cough is characterized as moist. The symptoms have been associated with fever and runny nose. Note for Cough : Here for exam. 09-12-2019 Unclassified (1 source) Earache - The onset of the earache has been acute and has been occurring in an intermittent pattern for 6 days. The pain is felt in both sides (Left ear worse). Note for Earache : Pt c/o dizziness, ear pain, ringing, ear drainage, feverish, and plugged ear. Pt said she had a sore throat last week, but that is better now. 03-22-2019 Unclassified (1 source) Rash - The onset of the rash has been acute and has been occurring for 1 week. The course has been increasing. The rash is characterized as red, crusty and raised above the skin. The rash was first seen on the face. It spread to the upper extremity (left arm). There has been associated itching, while there has been no fever or pain. Note for Rash : Pt said her kids were treated for impetigo a few weeks ago. 06-23-2018 Results Test Name Value Interpretation Reference Range Facil ity Vital Signs Date Time Vital Sign Value Performing Clinician Faci lity 09-12-2019 13:57-0500 Body height 156.21 cm Karla Weston RN [facility], [facility].; [facility]. 09-12-2019 13:57-0500 Body mass index (BMI) [Ratio] 28.25 kg/m2 Karla Weston RN [facility], [facility].; [facility]. 09-12-2019 13:57-0500 Body surface area Derived from formula 1.69 m2 Karla Weston RN [facility] 09-12-2019 13:57-0500 Body temperature 99.7 [degF] [facility] Encounters Encounter Date Encounter Type Care Provider Facility Start: 09-12-2019 End: 09-12-2019 Office outpatient visit 15 minutes SIVAKUMAR SCHMITT MD [facility] Start: 03-22-2019 End: 03-22-2019 Office outpatient visit 10 minutes SIVAKUMAR SCHMITT MD [facility] Start: 06-23-2018 End: 06-23-2018 Office outpatient visit 10 minutes SIVAKUMAR SCHMITT MD [facility] Procedures Date Procedure Procedure Detail Performing Clinician Start: 09-12-2019 End: 09-12-2019 Urinary Incontinence Karla Weston RN Plan of Treatment Date Care Activity Detail Author Start: 03-22-2019 Patient Education [facility] Immunizations Immunization Date Immunization Notes Care Provider Fa cility influenza virus vaccine, unspecified formulation SIVAKUMAR SCHMITT MD Work Phone: [facility] Social History Date Type Detail Facility Alcohol Use: Alcohol Use: ; No Alcohol Us e. [facility] Tobacco use: Tobacco use: ; Never smoker. [facility]. [facility]. Work Phone: Never smoked tobacco [facility] [employer]. Work Phone: Summary Purpose Family History No Family History [...] BE BASED ON THE PRIMARY CLINICAL RECORDS. [facility] [employer] [facility]. provides no warranty or guarantee of the accuracy or completeness of information in this document.
[2023-09-13 02:06] LABS: Chlamydia By Nucleic Acid AMP Negative (Negative); Gonococcus By Nucleic Acid AMP Negative (Negative)
[2023-09-14 17:07] LABS: HPV APTIMA, High Risk Negative (Negative)
== END | disposition home or self-care (01) ==
PROVIDERS: PCP Family Medicine; Visit Provider Obstetrics & Gynecology
DX: Z34.90 Encounter for supervision of normal pregnancy, unspecified, unspecified trimester (principal)
CPT/HCPCS: 87077; 87086; 87088; 87186; 87491; 87591; 87624; 88175; G0145

== ENCOUNTER → 2023-10-07 | Outpatient (CLI) | payer SELFPAY ==
--- NOTE | 2023-10-07 09:20 | VDLE_ITS ---
Reason For Study: Left leg pain RIGHT LEFT CFV is compressible, spontaneous, phasic, CFV is compressible, spontaneous, phasic, competent and demonstrates normal competent, and demonstrates normal augmentation. augmentation. Procedure FV is compressible, spontaneous, phasic, This is a venous duplex using B-mode, color competent and demonstrates normal flow and spectral Doppler. augmentation. Exam performed in department. POP V is compressible, spontaneous, phasic, Compared to 08/31/2023. competent and demonstrates normal augmentation. T/P Trunk is compressible. PTV is compressible. LT PerV is compressible. GSV is partially compressible in segments from prox to distal thigh. Vessel is dilated with minimal flow in segments. Varicose veins in proximal calf are partially compressible. VL/Venous Duplex US, Unilateral Interpretation Summary Chronic superficial vein thrombosis noted in the left great saphenous vein and calf varicosities Deep veins of the left lower extremity are patent and compressible segmentally. There is no evidence of left lower extremity deep vein thrombosis. Ordering Physician: Vale Scott Referring Physician: Cirilo Rehman Performed By: Sadia Cervantes RVBlair
[2023-10-07 10:32] LABS: Absolute Lymphocyte Count 1.57 X10^3/uL (0.83-4.51); Absolute Neutrophil Count 6.1 X10^3/uL (2.0-7.7); Basophil# 0.03 X10^3/uL; Basophil% 0.4 % (0-1); Eosinophil# 0.08 X10^3/uL; Hematocrit 35.3 % (37-47); Hemoglobin 11.8 g/dL (12.0-15.0); Lymphocyte # 1.57 X10^3/ul (0.83-4.51); Mean Corp Hgb Conc 33.4 g/dL (32-36); Mean Corpuscular Hgb 30.3 pg (27.0-32.0); Mean Corpuscular Volume 90.7 fL (81-99); Mean Platelet Vol. 9.5 fl (6.2-12.0); Monocyte# 0.47 X10^3/uL; Monocyte% 5.7 % (0-10); NRBC Flagged by Analyzer 0 % (0-5); Neutrophil # 6.09 X10^3/uL (2.7-7.7); Neutrophil % 73.4 % (47-70); Platelet Count 178 K/mm3 (150-450); RBC Distribution Width CV 13.4 % (11.6-14.6); RBC Distribution Width SD 44.4 fl (35.1-43.9); Red Blood Count 3.89 M/mm3 (4.2-5.4); White Blood Count 8.3 K/mm3 (4.4-11.0)
[2023-10-07 11:56] LABS: HIV - WCH Non-Reactive (Nonreactive); Hepatitis B Surface Antigen Non-Reactive (Nonreactive); Hepatitis C Antibody Non-Reactive (Nonreactive); Rubella IgG Reactive (Nonreactive); Syphilis Antibodies Non-reactive
== END | disposition home or self-care (01) ==
PROVIDERS: Obstetrics & Gynecology; PCP Family Medicine; Referring Provider Physician Assistant; Visit Provider Physician Assistant
DX: O22.21 Superficial thrombophlebitis in pregnancy, first trimester (principal); I82.812 Embolism and thrombosis of superficial veins of left lower extremity
CPT/HCPCS: 36415; 85025; 86703; 86762; 86780; 86803; 86850; 86900; 86901; 87340; 93971

== ENCOUNTER → 2023-11-23 | Outpatient (CLI) | payer SELFPAY ==
--- NOTE | 2023-11-23 09:37 | US_ITS ---
STUDY: SECOND AND THIRD TRIMESTER OBSTETRICAL ULTRASOUND REASON FOR EXAM: Female, 33 years old anatomy LMP: July 03, 2023. TECHNIQUE: Transabdominal and Transvaginal TECHNICAL QUALITY: Adequate. PRIOR ULTRASOUND: None. FINDINGS: There is a single intrauterine fetus. The fetus is in an transverse lie with the head on the maternal left side. There is demonstrated cardiac activity with a heart rate of 144 bpm. There is a normal amniotic fluid volume. The largest amniotic fluid pocket measures 5.4 cm x 4.3 cm. The amniotic fluid index (JESENIA) is within normal limits. The placenta is posterior in location and is not low lying. There are Grade 0 placental changes. The cervix measures 4.5 cm in length. The bilateral adnexal regions are normal. BIOMETRY: BPD: 4.83 cm: 20 weeks, 4 days HC: 18.14 cm: 20 weeks, 4 days AC: 15.94 cm: 21 weeks, 0 days FL: 3.38 cm: 20 weeks, 4 days CI: 78% FL/BPD: 70% FL/HC: FL/AC: 21% HC/AC: 1.14 age by current US: 20 weeks, 4 days. ALETA by current US: April 07, 2024. Estimated weight: 381 grams, +/- 57 grams, 67 %. Age by LMP: 20 weeks, 3 days. ALETA by LMP: April 08, 2024. ANATOMY: Gender: Indeterminant Cranium: Normal lateral ventricles. Normal choroid plexus. Normal cerebellum. Normal cisterna magna. Normal face, nose and lips. Chest: Normal 4-chamber heart. Abdomen/Pelvis: Normal diaphragm. Normal stomach. Normal abdominal wall. Normal cord insertion. Normal 3 vessel cord. Dilatation of the renal pelves. Right renal pelvis measures 0.6 cm and the left renal pelvis measures 0.7 cm. Normal bladder. Spine: Normal cervical spine. Normal thoracic spine. Normal lumbar spine. Normal sacrum. Extremities: Normal bilateral upper extremities. Normal bilateral lower extremities. IMPRESSION: Single live intrauterine gestation with a mean gestational age of 20 weeks and 3 days. Mild dilatation of the bilateral renal pelves. Electronically Signed: Jamey Chance MD at 9:54 EDT , STUDY: FIRST TRIMESTER OBSTETRICAL ULTRASOUND REASON FOR EXAM: Female, 33 years old. Cervical length. LMP: July 03, 2023. TECHNIQUE: Transvaginal TECHNICAL QUALITY: Adequate. PRIOR ULTRASOUND: None. FINDINGS: The cervical length measures 4.5 cm. US/OB Anatomy Scan IMPRESSION: The cervical length measures 4.5 cm. Electronically Signed: Jamey Chance MD at 9:54 EDT ,
== END | disposition home or self-care (01) ==
PROVIDERS: PCP Family Medicine; Referring Provider Obstetrics & Gynecology; Visit Provider Obstetrics & Gynecology
DX: O09.90 Supervision of high risk pregnancy, unspecified, unspecified trimester (principal); Z3A.00 Weeks of gestation of pregnancy not specified
CPT/HCPCS: 76805; 76817

== ENCOUNTER → 2024-01-04 | Outpatient (CLI) | payer SELFPAY ==
[2024-01-04 16:35] LABS: Absolute Lymphocyte Count 1.77 X10^3/uL (0.83-4.51); Basophil# 0.03 X10^3/uL; Basophil% 0.4 % (0-1); Eosinophils% 1.2 % (0-5); Hematocrit 30.7 % (37-47); Hemoglobin 10.3 g/dL (12.0-15.0); Lymphocyte # 1.77 X10^3/ul (0.83-4.51); Lymphocyte % 20.7 % (19-41); Mean Corp Hgb Conc 33.6 g/dL (32-36); Mean Corpuscular Hgb 30.5 pg (27.0-32.0); Mean Corpuscular Volume 90.8 fL (81-99); Mean Platelet Vol. 9.7 fl (6.2-12.0); Monocyte# 0.55 X10^3/uL; Monocyte% 6.4 % (0-10); NRBC Flagged by Analyzer 0 % (0-5); Neutrophil # 6.02 X10^3/uL (2.7-7.7); Neutrophil % 70.2 % (47-70); Platelet Count 159 K/mm3 (150-450); RBC Distribution Width CV 13.6 % (11.6-14.6); RBC Distribution Width SD 45.1 fl (35.1-43.9); Red Blood Count 3.38 M/mm3 (4.2-5.4); White Blood Count 8.6 K/mm3 (4.4-11.0)
[2024-01-04 17:04] LABS: Glucose Challenge Gest 1H 50g 113 mg/dL (70-140)
[2024-01-04 17:36] LABS: HIV - WCH Non-Reactive (Nonreactive); Syphilis Antibodies Non-reactive
== END | disposition home or self-care (01) ==
LOC: LAB 15:44
PROVIDERS: PCP Family Medicine; Referring Provider Obstetrics & Gynecology; Visit Provider Obstetrics & Gynecology
DX: O09.90 Supervision of high risk pregnancy, unspecified, unspecified trimester (principal); Z3A.00 Weeks of gestation of pregnancy not specified; Z13.1 Encounter for screening for diabetes mellitus
CPT/HCPCS: 36415; 82950; 85025; 86703; 86780

== ENCOUNTER → 2024-02-23 | Outpatient (CLI) | payer SELFPAY ==
[2024-02-23 14:36] LABS: Absolute Lymphocyte Count 1.64 X10^3/uL (0.83-4.51); Absolute Neutrophil Count 6.4 X10^3/uL (2.0-7.7); Basophil# 0.03 X10^3/uL; Basophil% 0.3 % (0-1); Eosinophils% 1.1 % (0-5); Hematocrit 31.4 % (37-47); Hemoglobin 10.4 g/dL (12.0-15.0); Lymphocyte # 1.64 X10^3/ul (0.83-4.51); Lymphocyte % 18.4 % (19-41); Mean Corp Hgb Conc 33.1 g/dL (32-36); Mean Corpuscular Hgb 30.9 pg (27.0-32.0); Mean Corpuscular Volume 93.2 fL (81-99); Mean Platelet Vol. 9.6 fl (6.2-12.0); Monocyte# 0.63 X10^3/uL; Monocyte% 7.1 % (0-10); NRBC Flagged by Analyzer 0 % (0-5); Neutrophil # 6.38 X10^3/uL (2.7-7.7); Neutrophil % 71.9 % (47-70); Platelet Count 143 K/mm3 (150-450); RBC Distribution Width CV 15.3 % (11.6-14.6); RBC Distribution Width SD 51.3 fl (35.1-43.9); Red Blood Count 3.37 M/mm3 (4.2-5.4); White Blood Count 8.9 K/mm3 (4.4-11.0)
[2024-02-23 22:32] LABS: Xtra Tube EP Lab EXTRA TUBE
== END | disposition home or self-care (01) ==
PROVIDERS: Nurse Practitioner Women's Health; PCP Family Medicine; Referring Provider Obstetrics & Gynecology; Visit Provider Obstetrics & Gynecology
DX: O99.013 Anemia complicating pregnancy, third trimester (principal); Z3A.00 Weeks of gestation of pregnancy not specified
CPT/HCPCS: 36415; 85025

== ENCOUNTER → 2024-03-13 | Outpatient (CLI) | payer SELFPAY | END | disposition home or self-care (01) | LOC: LABSPEC 12:35 | PROVIDERS: PCP Family Medicine; Referring Provider Nurse Practitioner Women's Health; Visit Provider Nurse Practitioner Women's Health | DX: O09.93 Supervision of high risk pregnancy, unspecified, third trimester (principal); Z3A.36 36 weeks gestation of pregnancy | CPT/HCPCS: 87077; 87081; 87186 ==

== ENCOUNTER → 2024-03-22 | Outpatient (CLI) | payer SELFPAY ==
[2024-03-22 09:48] LABS: Absolute Neutrophil Count 5.8 X10^3/uL (2.0-7.7); Basophil# 0.02 X10^3/uL; Basophil% 0.2 % (0-1); Eosinophil# 0.13 X10^3/uL; Eosinophils% 1.6 % (0-5); Hematocrit 33.9 % (37-47); Hemoglobin 11.3 g/dL (12.0-15.0); Lymphocyte % 20.3 % (19-41); Mean Corp Hgb Conc 33.3 g/dL (32-36); Mean Corpuscular Hgb 31.3 pg (27.0-32.0); Mean Corpuscular Volume 93.9 fL (81-99); Mean Platelet Vol. 9.7 fl (6.2-12.0); Monocyte# 0.65 X10^3/uL; Monocyte% 7.8 % (0-10); NRBC Flagged by Analyzer 0 % (0-5); Neutrophil % 69.1 % (47-70); Platelet Count 127 K/mm3 (150-450); RBC Distribution Width CV 15.4 % (11.6-14.6); RBC Distribution Width SD 53.1 fl (35.1-43.9); Red Blood Count 3.61 M/mm3 (4.2-5.4); White Blood Count 8.4 K/mm3 (4.4-11.0)
== END | disposition home or self-care (01) ==
LOC: PAVLAB 09:35
PROVIDERS: PCP Family Medicine; Referring Provider Obstetrics & Gynecology; Visit Provider Obstetrics & Gynecology
DX: O99.013 Anemia complicating pregnancy, third trimester (principal); Z3A.00 Weeks of gestation of pregnancy not specified
CPT/HCPCS: 36415; 85025

== ENCOUNTER 2024-04-05 16:40 | Inpatient (IN) | payer SELFPAY ==
[2024-04-05] VITALS (11 sets, daily range): BP systolic 98–120; BP diastolic 57–69; PULSE 63–76; RESP 16–18; TEMP 35.9–37.1; O2SAT 81–99; BMI 34.2
[2024-04-05 17:08] LABS: Absolute Lymphocyte Count 1.69 X10^3/uL (0.83-4.51); Absolute Neutrophil Count 5.3 X10^3/uL (2.0-7.7); Basophil# 0.02 X10^3/uL; Basophil% 0.3 % (0-1); Eosinophil# 0.07 X10^3/uL; Eosinophils% 0.9 % (0-5); Hematocrit 32.9 % (37-47); Hemoglobin 11.4 g/dL (12.0-15.0); Lymphocyte # 1.69 X10^3/ul (0.83-4.51); Lymphocyte % 22.4 % (19-41); Mean Corp Hgb Conc 34.7 g/dL (32-36); Mean Corpuscular Hgb 31.7 pg (27.0-32.0); Mean Corpuscular Volume 91.4 fL (81-99); Monocyte# 0.41 X10^3/uL; Monocyte% 5.4 % (0-10); NRBC Flagged by Analyzer 0 % (0-5); Neutrophil # 5.31 X10^3/uL (2.7-7.7); Neutrophil % 70.2 % (47-70); Platelet Count 122 K/mm3 (150-450); RBC Distribution Width CV 14.6 % (11.6-14.6); RBC Distribution Width SD 48.8 fl (35.1-43.9); White Blood Count 7.6 K/mm3 (4.4-11.0)
[2024-04-05] MEDS: Clindamycin 900 MG/50 ML BAG 75 MG IV (17:45)
[2024-04-05 18:19] LABS: Syphilis Antibodies Non-reactive
--- NOTE | 2024-04-05 19:24 | HP.PCM.OB_ITS ---
HPI - General General Date of Admission: 04/05/24 HPI Narrative PEDRITO SOLORZANO, is a 33 F who presents IAL for TOLAC> no vb lof admits good fm with regular ctx now 5-6 cm Maternal Data Information ALETA Calculator Estimated Delivery Date Method Current WG Current Estimate 04/08/24 LMP (Certain) 39w 4d PFSH PFSH Medical History Seasonal allergies Acute superficial venous thrombosis of left lower extremity Vaginal after Pre-eclampsia No significant medical problems Home Medications ?Medication ?Instructions ?Recorded ?Last Taken ?Type L.acid,laure-B.animal,bifid,infant cap PO digestion 09/07/23 04/05/24 History 50 billion cell capsule,delayed rel ([facility] Probiotic) digestive enzymes 1 cap PO DAILY PRN digestive 09/07/23 Unknown History omega-3 fatty acids 1,000 mg 1,000 mg PO DAILY 09/07/23 04/05/24 History capsule (Super [place]-3) vit no.164-ferrous 1 tab PO 09/07/23 04/05/24 History gluconate 6 mg-folate 833.5 mcg DFE tablet (Joshua PNV) psyllium husk 0.4 gram capsule 0.4 g PO DAILY constipation 09/07/23 04/05/24 History (Daily Fiber) Allergy/AdvReac Type Severity Reaction Status Date / Time loratadine (From Claritin) AdvReac Severe Other Verified 04/05/24 17:52 Penicillins AdvReac Intermediate Vomiting Verified 04/05/24 17:52 Family History Mother Hypertension DVT of leg (deep venous thrombosis) Surgical History History of tonsillectomy H/O elbow surgery Tarrs teeth extracted H/O section Social History adopted: No household members: spouse and children number of children: 3 current occupational status: unemployed current occupation: homemaker current occupational exposures/hazards: No pets and animals: No history of recent travel: Yes ([place]-July 22) out of state: Yes out of country: No sexually active: Yes Smoking Status: Never smoker second hand exposure: No alcohol intake: never substance use type: does not use diet: gluten free well-balanced diet: daily or most days caffeine: No eating out: rarely or never during the past year weight has: remained stable what type of physical activity do you participate in: walking frequency: 3-4 times per week duration: 30-45 minutes/day olivier/sikh: Mennonite seatbelt use: always do you feel safe at home: Yes additional social history: - [place] History 5 Elective abortions Hx Para 3 Spontaneous abortions 1 Hx # Term Pregnancies Ectopic pregnancies Hx # Pregnancies Multiple births # of living children 3 Past Pregnancies Del. Date Name GA/Weeks Outcome Route Bth Weight Infant Gen Labor Lgth Anesthesia Del Locatn Provider FOB 08/10/14 Deneen 35 live - 4lbs 11oz Female epidural Reynaldo Childers 10/27/16 Arthur 41 live - full term 8lbs 6oz Male 24-36 hours intravenous analgesics Reynaldo Childers 12/28/20 [place] 40 live - full term Female [facility] Delivery Date: 08/10/14 Last Updated by: Gabriella Posey pre eclampsia; emergency c/s Delivery Date: 10/27/16 Last Updated by: Gabriella Posey no complications Visit Details Expected Delivery Route/Plan patient counseled regarding risks/benefits of trial of labor versus repeat . ACOG/uptodate education given to patient. 93 % likelihood of success per calculator TOLAC consent form signed: signed Labor Preferences- CB/BF classes: [] labor support person: [] labor intervention preferences: [] pain management options preferred: [] cut cord/dad catch: [] : [] PP control planned: [] discussed possible routes of delivery and associated risks: [] special requests: [] Plans Covid status: [] Flu vaccine: declined Tdap vaccine: declined Rhogam: na LARC form signed: declined movement and labor precautions reviewed. Problem list reviewed and updated with the most current plan of care details and appropriate orders placed. Relevant counseling for the gestational age provided. Continue routine care and follow up unless otherwise noted in visit notes/problem list details OB Flowsheet Initial Weight: Not Recorded Date -?-?-?-?-?-?-?-?-?-?-?-?- EGA Weight BP Urine Prot -?-?-?-?-?-?-?-?-?-?-?-?- Glucose FHR FuHt Pres Dilation -?-?-?-?-?-?-?-?-?-?-?-?- Effaced St Visit Note 09/09/23 -?-?-?-?-?-?-?-?-?-?-?-?- 9w 5d 158 lb 108/69 -?-?-?-?-?-?-?-?-?-?-?-?- 150 -?-?-?-?-?-?-?-?-?-?-?-?- Sm- CRL 3.27cm 10/07/23 -?-?-?-?-?-?-?-?-?-?-?-?- 13w 5d 159 lb 94/58 Negative -?-?-?-?-?-?-?-?-?-?-?-?- Negative 165 -?-?-?-?-?-?-?-?-?-?-?-?- SM- no vb duc zavala, had NOB labs drawn today 11/01/23 -?-?-?-?-?-?-?-?-?-?-?-?- 17w 2d 164 lb 6 oz 124/80 Nega tive -?-?-?-?-?-?-?-?-?-?-?-?- Negative 159 -?-?-?-?-?-?-?-?-?-?-?-?- MH-No VB. Had be en feeling movement and then did not X 24 hr. [place] while driving here. Anatomy US sched. No other concerns. Declines AFP 12/06/23 -?-?-?-?-?-?-?-?-?-?-?-?- 22w 2d 167 lb 6 oz 95/59 Nega tive -?-?-?-?-?-?-?-?-?-?-?-?- Negative 145 -?-?-?-?-?-?-?-?-?-?-?-?- JV- ultrasound s hows Mild dilatation of the bilateral renal pelves. ultrasound was done at [facility]. consulting MFM. 01/04/24 -?-?-?-?-?-?-?-?-?-?-?-?- 26w 3d 171 lb 95/62 -?-?-?-?-?-?-?-?-?-?-?-?- 150 -?-?-?-?-?-?-?-?-?-?-?-?- SM- no vb lof go od fm no regular ctx 02/11/24 -?-?-?-?-?-?-?-?-?-?-?-?- 31w 6d 179 lb 4 oz 100/61 Nega tive -?-?-?-?-?-?-?-?-?-?-?-?- Negative 155 31 -?-?-?-?-?-?-?-?-?-?-?-?- kw- no vb/lof/ct x. good fm. passed 28 week labs. LARC today and declines TDAP. Still desires to 02/23/24 -?-?-?-?-?-?-?-?-?-?-?-?- 33w 4d 179 lb 92/60 -?-?-?-?-?-?-?-?-?-?-?-?- 150 33 -?-?-?-?-?-?-?-?-?-?-?-?- SM- no vb lof go od fm n oregular ctx 03/13/24 -?-?-?-?-?-?-?-?-?-?-?-?- 36w 2d 182 lb 109/66 Negative -?-?-?-?-?-?-?-?-?-?-?-?- Negative 147 36 -?-?-?-?-?-?-?-?-?-?-?-?- MH-NO VB, LOF. G ood Fm. GBS done 03/22/24 -?-?-?-?-?-?-?-?-?-?-?-?- 37w 4d 181 lb 97/60 Negative -?-?-?-?-?-?-?-?-?-?-?-?- Negative 145 37 Cephalic -?-?-?-?-?-?-?-?-?-?-?-?- Sm- no vb lof go od fm no reulgar ctx 03/27/24 -?-?-?-?-?-?-?-?-?-?-?-?- 38w 2d 184 lb 108/67 Negative -?-?-?-?-?-?-?-?-?-?-?-?- Negative 145 38 Cephalic 3 -?-?-?-?-?-?-?-?-?-?-?-?- 50 -2 KW- no vb/ lof/reg ctx. good fm. If R C/S would like tubal. 04/03/24 -?-?-?-?-?-?-?-?-?-?-?-?- 39w 2d 183 lb 8 oz 107/71 Nega tive -?-?-?-?-?-?-?-?-?-?-?-?- Negative 149 37 Cephalic 3 -?-?-?-?-?-?-?-?-?-?-?-?- 80 -2 JV- no lof , vaginal bleeding, or dec fm. feeling a lot of contractions. pt to stay around town for a few hours and if contractions don't quit to check in with L&D NST FHR Rate Baby A Baseline: 140 Variability:: Moderate Accelerations:: 15 x 15 Decelerations:: None NST Reactive:: Yes FHR Category:: Category I Uterine Activity:: q3-5 ROS Constitutional Constitutional: Reports systems reviewed and no addt'l complaints, except as documented ENT HEENT: Reports systems reviewed and no addt'l complaints, except as documented Cardiovascular Cardiovascular: Reports systems reviewed and no addt'l complaints, except as documented Respiratory/Chest Respiratory/Chest: Reports systems reviewed and no addt'l complaints, except as documented Gastrointestinal Gastrointestinal: Reports systems reviewed and no addt'l complaints, except as documented and nausea; Denies abdominal pain Genitourinary Genitourinary: Reports systems reviewed and no addt'l complaints, except as documented, contractions Details: present and frequency (regular ) and movement Details: present Musculoskeletal Musculoskeletal: Reports systems reviewed and no addt'l complaints, except as documented Integumentary Integumentary: Reports as per HPI Neurologic Neurologic: Reports systems reviewed and no addt'l complaints, except as documented Endocrine Endocrinology: Reports systems reviewed and no addt'l complaints, except as documented Vital Signs Vital Signs Vital Signs: 04/05/24 12:59 04/05/24 12:59 04/05/24 12:59 Temperature Temperature Source Tympanic Pulse Rate 73 Respiratory Rate Blood Pressure 107/66 BP Systolic 107 BP Diastolic 66 04/05/24 12:59 04/05/24 12:59 04/05/24 12:59 Temperature 96.6 F L Temperature Source Pulse Rate 73 Respiratory Rate 16 Blood Pressure BP Systolic BP Diastolic 04/05/24 16:30 04/05/24 16:30 04/05/24 17:26 Temperature Temperature Source Pulse Rate 70 Respiratory Rate Blood Pressure 108/62 98/57 L BP Systolic 108 98 BP Diastolic 62 57 04/05/24 17:26 04/05/24 17:26 04/05/24 17:26 Temperature Temperature Source Tympanic Pulse Rate 73 Respiratory Rate 16 Blood Pressure BP Systolic BP Diastolic 04/05/24 17:26 Temperature 97.0 F L Temperature Source Pulse Rate Respiratory Rate Blood Pressure BP Systolic BP Diastolic Weight Weight: 181 lb Body Mass Index (BMI) 34.2 Physical Exam Const alert, oriented x3 and healthy appearing Constitutional Narrative: uncomfortable with contractions HEENT normocephalic and moist oral mucous membranes Head and Scalp: atraumatic Neck full ROM, no lymphadenopathy, supple and thyroid normal General: trachea midline Thyroid: thyroid normal Lymph Lymphatic: no lymphadenopathy noted Chest inspection of chest normal Resp normal respiratory effort Cardio regular rate GI normal to inspection, nondistended, normoactive bowel sounds, soft to palpation and non-tender Inspection: gravid external exam normal Bimanual Exam - Vag & Uterus: uterus non-tender Manual OB Exam: estimated gestational size appropriate, presentation cephalic, dilated, effaced and station Extremity normal to inspection General Extremity: Negative for edema Skin no rashes or lesions noted Neuro deep tendon reflexes 2+ bilaterally Motor Exam: strength 5/5 throughout and clonus absent Psych mental status grossly normal Labs Labs Labs: Blood Type O POSITIVE Antibody Screen NEGATIVE Hct 32.9 % (37-47) L Hgb 11.4 g/dL (12.0-15.0) L Obstetrics Ultrasound Syphilis Total Ab Non-reactive Rubella IgG Antibody Reactive (Nonreactive) Hep Bs Antigen Non-Reactive (Nonreactive) Hepatitis C Antibody Non-Reactive (Nonreactive) Chlamydia DNA (KEVIN) Negative (Negative) N.gonorrhoeae DNA (KEVIN) Negative (Negative) HIV 1&2 Antibody Non-Reactive (Nonreactive) Glucose 1 Hr 50 gm 113 mg/dL (70-140) Assessment & Plan (1) Positive GBS test: COMMENT: needs treated in labor (2) Anemia affecting : QUALIFIERS: Trimester: third trimester Qualified Code(s): O99.013 - Anemia complicating , third trimester COMMENT: Hb 10.4 Recommend iron. repeat ordered (3) History of pre-eclampsia: COMMENT: baseline labs, 81 mg asa recommended. Not drawn with NOB labs, LM to have done next appt (4) Previous section: COMMENT: 1st plan (5) Supervision of high-risk : QUALIFIERS: Trimester: second trimester Qualified Code(s): O09.92 - Supervision of high risk , unspecified, second trimester COMMENT: PRR , ALETA 04/08/24, surprise PC [facility], [place] (6) : QUALIFIERS: Weeks of gestation: 39 weeks Qualified Code(s): Z3A.39 - 39 weeks gestation of COMMENT: normal anatomy, discussed genetic & carrier testing, NIPT low risk. Declines AFP (7) Active labor at term: PLAN: Plan Patient presents IAL, plan expectant management for , pitocin/AROM PRN if needed. Pain management: prefers minimal intervention. GBS neg. Management of any complications: none I have reviewed the [facility] and made any clinically relevant updates.
[2024-04-06] VITALS (30 sets, daily range): BP systolic 97–115; BP diastolic 53–71; PULSE 57–95; RESP 15–20; TEMP 36.5–37.2; O2SAT 96–100
[2024-04-06] MEDS: Clindamycin 900 MG/50 ML BAG 75 MG IV (00:20)
[2024-04-06] MEDS: Oxytocin 15 Units/NS 250ml 15 UNITS/250 ML IV.SOLN 2 UNITS IV (01:07)
[2024-04-06] MEDS: Lactated Ringers 1,000 ML 50 ML IV (01:07)
--- NOTE | 2024-04-06 02:54 | EX.PCM.OBRPT ---
Assessment & Plan (1) : QUALIFIERS: Weeks of gestation: 39 weeks Qualified Code(s): Z3A.39 - 39 weeks gestation of COMMENT: normal anatomy, discussed genetic & carrier testing, NIPT low risk. Declines AFP (2) Supervision of high-risk : QUALIFIERS: Trimester: second trimester Qualified Code(s): O09.92 - Supervision of high risk , unspecified, second trimester COMMENT: PRR , ALETA 04/08/24, surprise Arthur Carreno, [place] (3) Previous section: COMMENT: 1st plan (4) History of pre-eclampsia: COMMENT: baseline labs, 81 mg asa recommended. Not drawn with NOB labs, LM to have done next appt (5) Anemia affecting : QUALIFIERS: Trimester: third trimester Qualified Code(s): O99.013 - Anemia complicating , third trimester COMMENT: Hb 10.4 Recommend iron. repeat ordered (6) Positive GBS test: COMMENT: needs treated in labor (7) Vaginal after : COMMENT: SM 39 boy Jamel Maternal Data Information ALETA Calculator Estimated Delivery Date Method Current WG Current Estimate 04/08/24 LMP (Certain) 39w 5d Vaginal Delivery Operative Information Date of Procedure: 04/06/24 Pre-Operative Diagnosis: see a/p diagnoses Post-Operative Diagnosis: same Surgery / Procedure Performed: Type of Anesthesia: None Special Medications: none Estimated Blood Loss: 200 Fluids Replaced: crystalloid Findings Description of Procedure: Patient began pushing and delivered the head in the HARMEET presentation. The head was delivered atraumatically and a loose nuchal cord ?1 was identified and the delivered through without complication. The anterior and posterior shoulders delivered without complication followed by the rest of the infant and the infant was placed on the maternal abdomen. Delayed cord clamping was employed for approximately 60 seconds. Cord was clamped and cut and gentle traction was applied to the cord and the placenta delivered spontaneously immediately following it was noted to be intact with three-vessel cord. The perineum and vagina were inspected and noted to have no laceration. EBL was 200 cc. Patient and tolerated delivery well. Amniotic Fluid Description: Clear Placental Delivery Description: Spontaneous Placenta Disposition: [facility] Cord Vessel Description: 3 Vessels Cord Entanglement: Around neck x 1, loose Delayed Cord Clamping: Yes Post Vaginal Delivery Medications Given After Delivery: IV Pitocin Episiotomy Description: None Complication Complications: None Multi Select Codes Urinary/Genital Urinary/Genital CPT Codes: 79430 delivery global pkg
--- NOTE | 2024-04-06 02:56 | PCM.DC ---
Discharge Instructions Diet Discharge Diet: No restrictions Activity Discharge Activity: Return to Normal Activity, May Not Drive (while taking narcotic pain medications.) and May Shower May resume sexual activity in: 4-6 weeks Dressing / Incision Call your doctor if your incision/area has: Continuous Slow Oozing, Sudden Increased Bleeding, Increased Pain/ Swelling, Increased Redness and Foul Smelling Discharge Follow Up Care Please Follow Up With: Rona Stone MD When: Call [phone] to make an appointment with your doctor in 6 weeks. If you had elevated blood pressure or 4th degree laceration, you will need to be seen in 2 weeks. Test Results: Test results from this visit will be discussed in further detail at your follow-up appointment, if applicable. Discharge Plan Admission Admit Date/Time: 04/05/24 16:40 Attending Provider: Rona Stone Primary Care Provider: Cirilo Rehman Discharge Orders/Prescriptions Prescriptions: No Action PNV 6 mg iron- 833.5 mcg DFE tablet 1 tab PO omega-3 fatty acids [Super [place]-3] 1,000 mg capsule 1,000 mg PO DAILY Fort[facility] Probiotic 50 billion cell capsule,delayed release(DR/EC) PO psyllium husk [Daily Fiber] 0.4 gram capsule 0.4 g PO DAILY digestive enzymes Capsule 1 cap PO DAILY PRN (Reason: digestive) Rx Instructions: administer with food; swallow whole; do not crush/chew/dissolve/break/cut Referrals / Follow Up: Cirilo Rehman MD [Primary Care Provider] - Disposition Disposition (needs filled in before D/C Order can be placed): Home, Self Care
[2024-04-06] MEDS: Oxytocin 15 Units/NS 250ml 15 UNITS/250 ML IV.SOLN 83 UNITS IV (03:20)
[2024-04-06] MEDS: Acetaminophen 500 MG Tablet PO (03:27)
[2024-04-06] MEDS: 0.9% Saline Lock 10 ML Syringe IV (06:33)
[2024-04-07] VITALS (9 sets, daily range): BP systolic 92–99; BP diastolic 52–57; PULSE 58–106; RESP 15–16; TEMP 36.3–37; O2SAT 96–99
--- NOTE | 2024-04-07 09:05 | PCM.PN.OB ---
Subjective Subjective Patient doing well without complaints. Tolerating PO. Ambulating and voiding without difficulty. Feeding well. Denies chest pain, shortness of breath, calf pain/swelling, fevers, chills, lightheadedness. Objective Data Objective Data Vital Signs: Vital Signs Temp Pulse Resp BP Pulse Ox O2 Del Method 98.6 F 74 16 92/52 L 97 Room Air 04/07/24 08:00 04/07/24 08:03 04/07/24 08:00 04/07/24 08:03 04/07/24 08:02 04/07/24 08:00 Oxygen Delivery Method Room Air Weight: 181 lb Body Mass Index (BMI) 34.2 Intake & Output: Intake and Output for Last 24 Hours 04/05/24 04/06/24 04/07/24 23:59 23:59 23:59 Intake Total 650 / 650 630.0 / 630.0 Output Total 700 / 700 Balance 650 / 650 -70.0 / -70.0 Lab / Micro Data 04/05/24 16:50 Physical Exam Const alert and oriented x3 HEENT normocephalic Eyes PERRL Neck full ROM Lymph Lymphatic: no lymphadenopathy noted Chest inspection of chest normal Resp normal respiratory effort, normal air movement and no use of accessory muscles Effort and Inspection: able to speak in complete sentences Cardio regular rate and regular rhythm GI normal to inspection, nondistended, normoactive bowel sounds Uterus Palpation: uterus fundus firm Extremity normal to inspection, full ROM, no calf tenderness and no pedal edema Skin no rashes or lesions noted Psych mental status grossly normal Assessment & Plan (1) Vaginal after : COMMENT: 39 boy Jamel PLAN: s/p PPD # 1 1. routine post delivery care 2. breast feeding- support given 3. rh positive 4. rubella immune 5. d/c home today
== END 2024-04-07 13:16 | disposition home or self-care (01) | DRG 807 ==
LOC: WPOUT 16:41 → WP 16:41
PROVIDERS: Admitting Provider Obstetrics & Gynecology; PCP Family Medicine; Referring Provider Obstetrics & Gynecology; Visit Provider Obstetrics & Gynecology
DX: O34.219 Maternal care for unspecified type scar from previous cesarean delivery (principal); Z37.0 Single live birth; B95.1 Streptococcus, group B, as the cause of diseases classified elsewhere; O99.824 Streptococcus B carrier state complicating childbirth; Z3A.39 39 weeks gestation of pregnancy; O69.81X0 Labor and delivery complicated by cord around neck, without compression, not applicable or unspecified; Z87.59 Personal history of other complications of pregnancy, childbirth and the puerperium
CPT/HCPCS: 59025; 59050; 85025; 86780; 86850; 86900; 86901; 99221; J7120; A4216; G0378